=== PATIENT | male | born 1955 | race Native Hawaiian/Other Pacific Islander ===

== ENCOUNTER 2016-12-18 10:18 | Outpatient (CLI) | payer BC | END 2016-12-18 18:55 | disposition home or self-care (01) | LOC: RAD 10:18 | DX: J01.00 Acute maxillary sinusitis, unspecified (principal); J20.9 Acute bronchitis, unspecified ==

== ENCOUNTER 2017-07-02 07:39 | Outpatient (CLI) | payer BC ==
[2017-07-02 08:17] LABS: PLATELET COUNT 215 K/uL (142-355)
[2017-07-02 08:33] LABS: POTASSIUM 4.4 mmol/L (3.6-5.2)
== END 2017-07-02 19:25 | disposition home or self-care (01) ==
LOC: LABW 07:39
PROVIDERS: Physician Assistant
DX: Z00.00 Encounter for general adult medical examination without abnormal findings (principal); E78.00 Pure hypercholesterolemia, unspecified; I10 Essential (primary) hypertension; I63.8 Other cerebral infarction; R53.82 Chronic fatigue, unspecified; R73.09 Other abnormal glucose
CPT/HCPCS: 36415; 80053; 80061; 82306; 83036; 83735; 84153; 84402; 84403; 85027

== ENCOUNTER 2018-10-30 12:06 | Emergency (ER) | payer BC ==
[~2018-10-30] VITALS: Ht 154.9 cm; Wt 83.5 kg
[2018-10-30 12:31] VITALS: TEMP 97.9
[2018-10-30 14:27] LABS: POTASSIUM 4.2 mmol/L (3.6-5.2)
[2018-10-30 14:29] LABS: PLATELET COUNT 236 K/uL (142-355)
[2018-10-30 15:24] VITALS: BP 138/67
== END 2018-10-30 15:24 | disposition home or self-care (01) ==
LOC: ED 12:06
PROVIDERS: Family Medicine
DX: S80.11XA Contusion of right lower leg, initial encounter (principal); L03.115 Cellulitis of right lower limb; W01.198A Fall on same level from slipping, tripping and stumbling with subsequent striking against other object, initial encounter; Y92.814 Boat as the place of occurrence of the external cause
CPT/HCPCS: 36415; 80053; 85027; 99283

== ENCOUNTER 2019-11-04 15:38 | Outpatient (CLI) | payer BC | END 2019-11-04 22:55 | disposition home or self-care (01) | LOC: RAD 15:38 | DX: J45.909 Unspecified asthma, uncomplicated (principal) ==

== ENCOUNTER 2019-11-16 19:35 | Observation (INO) | payer BC ==
[~2019-11-16] VITALS: Ht 154.9 cm; Wt 83.5 kg
[2019-11-16 02:15] VITALS: BP 114/62; TEMP 98.3
[2019-11-16 20:00] VITALS: BP 169/93; TEMP 98.9
[2019-11-16 20:40] LABS: PLATELET COUNT 253 K/uL (142-355)
[2019-11-16 20:47] LABS: POTASSIUM 4.9 mmol/L (3.6-5.2)
[2019-11-16 21:00] VITALS: BP 141/75
[2019-11-16 22:00] VITALS: BP 149/86
[2019-11-16 23:00] VITALS: BP 126/93
[2019-11-17] VITALS (18 sets, daily range): BP systolic 101–134; BP diastolic 56–75; TEMP 98.4–99.2; Ht 154.9 cm; Wt 83.5 kg
[2019-11-17] MEDS ORDERED: BENICAR HCT1 TA1 PO (08:54)
[2019-11-17] MEDS ORDERED: CLARITIN10 MG PO (08:54)
[2019-11-17] MEDS ORDERED: PROZAC10 MG PO (08:55)
[2019-11-17] MEDS ORDERED: CLOP75TA2 PO (08:56)
[2019-11-17] MEDS ORDERED: LIPITOR80 MG PO (08:56)
[2019-11-17] MEDS ORDERED: PULMICORT180 MCG/AC INH (08:57)
[2019-11-17] MEDS ORDERED: LOVAZA1 GM PO (08:57)
[2019-11-18] VITALS (7 sets, daily range): BP systolic 129–143; BP diastolic 77–86; TEMP 98–98.8
[2019-11-18 05:15] LABS: PLATELET COUNT 230 K/uL (142-355)
[2019-11-18 05:35] LABS: POTASSIUM 4.3 mmol/L (3.6-5.2)
[2019-11-19 04:35] VITALS: BP 143/67; TEMP 98.3
[2019-11-19 04:48] LABS: PLATELET COUNT 236 K/uL (142-355)
[2019-11-19 05:02] LABS: POTASSIUM 4.5 mmol/L (3.6-5.2)
[2019-11-19 08:00] VITALS: BP 155/97; TEMP 97.7
[2019-11-19 12:00] VITALS: BP 126/79; TEMP 98.1
[2019-11-19] MEDS ORDERED: DOXYCYCL HYC100 MG PO (14:05)
[2019-11-19] MEDS ORDERED: AZIT250T3 PO (14:05)
[2019-11-19] MEDS ORDERED: CLOP75TA2 PO (14:05)
[2019-11-19] MEDS ORDERED: DEXAMETHASON2 MG PO (14:09)
== END 2019-11-19 15:40 | disposition home or self-care (01) ==
LOC: ED 19:35 → ICU 23:03 → MED/SURG 11-17 21:55
PROVIDERS: Emergency Medicine Emergency Medical Services; ADMIT Internal Medicine Endocrinology, Diabetes & Metabolism
DX: U07.1 COVID-19 (principal); J96.01 Acute respiratory failure with hypoxia; I10 Essential (primary) hypertension; E78.49 Other hyperlipidemia; G47.33 Obstructive sleep apnea (adult) (pediatric); E11.9 Type 2 diabetes mellitus without complications; R74.0 Nonspecific elevation of levels of transaminase and lactic acid dehydrogenase [LDH]
CPT/HCPCS: 36415; 36600; 80053; 81000; 82805; 85027; 94760; 96360; 96365; 96375; 99220; 99285; G0378; J0456; J1100; J1650; J3490

== ENCOUNTER 2020-01-03 10:03 | Outpatient (CLI) | payer BC, OTHER ==
[~2020-01-03 10:03] MED LIST: AZIT250T3 PO; BENICAR HCT1 TA1 PO; CLARITIN10 MG PO; CLOP75TA2 PO; DEXAMETHASON2 MG PO; DOXYCYCL HYC100 MG PO; LIPITOR80 MG PO; LOVAZA1 GM PO; PROZAC10 MG PO; PULMICORT180 MCG/AC INH
== END 2020-01-03 19:15 | disposition home or self-care (01) ==
LOC: RESP 10:03
DX: R06.02 Shortness of breath (principal)

== ENCOUNTER 2020-04-23 13:17 | Emergency (ER) | payer BC ==
[~2020-04-23] VITALS: Ht 154.9 cm; Wt 83.5 kg
[2020-04-23 13:31] VITALS: TEMP 98.6
[2020-04-23 13:57] VITALS: BP 129/69
== END 2020-04-23 14:01 | disposition home or self-care (01) ==
LOC: ED 13:17
DX: H11.31 Conjunctival hemorrhage, right eye (principal)
CPT/HCPCS: 99282

== ENCOUNTER 2020-10-19 19:44 | Emergency (ER) | payer BC ==
[~2020-10-19] VITALS: Ht 154.9 cm; Wt 81.6 kg
[2020-10-19 19:52] VITALS: BP 141/83; TEMP 99.2
== END 2020-10-19 20:24 | disposition home or self-care (01) ==
LOC: ED 19:44
DX: R10.31 Right lower quadrant pain (principal); Z53.21 Procedure and treatment not carried out due to patient leaving prior to being seen by health care provider
CPT/HCPCS: 99281

== ENCOUNTER 2020-12-14 07:59 | Outpatient (CLI) | payer BC ==
[2020-12-14 08:50] LABS: PLATELET COUNT 197 K/uL (142-355)
[2020-12-14 08:52] LABS: POTASSIUM 4.5 mmol/L (3.6-5.2)
== END 2020-12-14 20:03 | disposition home or self-care (01) ==
LOC: LABW 07:59
PROVIDERS: ATTEND Internal Medicine
DX: G47.33 Obstructive sleep apnea (adult) (pediatric) (principal); I10 Essential (primary) hypertension
CPT/HCPCS: 36415; 80053; 80061; 81000; 84439; 84443; 85027

== ENCOUNTER 2022-08-08 18:13 | Outpatient (CLI) | payer OTHER, MEDICARE | END 2022-08-08 19:30 | disposition home or self-care (01) | LOC: CT 18:13 | PROVIDERS: ATTEND Internal Medicine | DX: R09.02 Hypoxemia (principal) | CPT/HCPCS: 36415; 82565; 84520; Q9963 ==

== ENCOUNTER 2022-08-09 07:42 | Outpatient (CLI) | payer OTHER, MEDICARE ==
[2022-08-09 08:07] LABS: PLATELET COUNT 198 K/uL (142-355)
[2022-08-09 08:24] LABS: POTASSIUM 4.1 mmol/L (3.6-5.2)
== END 2022-08-09 19:13 | disposition home or self-care (01) ==
LOC: LABW 07:42
PROVIDERS: ATTEND Internal Medicine
DX: E11.9 Type 2 diabetes mellitus without complications (principal); R06.02 Shortness of breath; I10 Essential (primary) hypertension; R49.0 Dysphonia
CPT/HCPCS: 36415; 80053; 80061; 81002; 83036; 83880; 84439; 84443; 85027; 85379

== ENCOUNTER 2022-10-29 14:53 | Outpatient (CLI) | payer OTHER, MEDICARE ==
[2022-10-29 15:19] LABS: POTASSIUM 4.5 mmol/L (3.6-5.2)
== END 2022-10-29 19:28 | disposition home or self-care (01) ==
LOC: LAB 14:53
PROVIDERS: ATTEND Internal Medicine
DX: E11.9 Type 2 diabetes mellitus without complications (principal); E03.8 Other specified hypothyroidism
CPT/HCPCS: 80053; 80061; 81002; 82043; 83036; 84439; 84443

== ENCOUNTER 2023-01-27 11:51 | Outpatient (CLI) | payer OTHER, MEDICARE | END 2023-01-27 19:05 | disposition home or self-care (01) | LOC: RAD 11:51 | PROVIDERS: ATTEND Internal Medicine | DX: M25.571 Pain in right ankle and joints of right foot (principal); M79.672 Pain in left foot ==